=== PATIENT | male | born 1970 | race Native Hawaiian/Other Pacific Islander ===

== ENCOUNTER 2021-02-08 02:44 | Emergency (ER) | payer OTHER ==
[~2021-02-08] VITALS: Ht 182.9 cm; Wt 118.4 kg
[2021-02-08 03:18] LABS: PLATELET COUNT 272 K/uL (142-355)
[2021-02-08 04:20] VITALS: BP 157/99; TEMP 99.2
[2021-02-08] MEDS ORDERED: LIPITOR40 MG PO (04:59)
[2021-02-08] MEDS ORDERED: CLOP75TA2 PO (05:00)
[2021-02-08] MEDS ORDERED: DULO60CA2 PO (05:01)
[2021-02-08] MEDS ORDERED: FAMO20TA4 PO (05:03)
[2021-02-08] MEDS ORDERED: GRALISE600 MG PO (05:06)
[2021-02-08] MEDS ORDERED: HYDR5TAB9 PO (05:08)
[2021-02-08] MEDS ORDERED: INSUINJP SC ×2 (05:09→05:10)
[2021-02-08] MEDS ORDERED: ISOS60TA6 PO (05:09)
[2021-02-08] MEDS ORDERED: ZESTRIL40 MG PO (05:11)
[2021-02-08] MEDS ORDERED: MEDROXYPROG150 MG/ML IM (05:13)
[2021-02-08] MEDS ORDERED: GNP MELATONIN3 MG PO (05:16)
[2021-02-08] MEDS ORDERED: METFORMIN HYD1000 M1 PO (05:18)
[2021-02-08] MEDS ORDERED: METO25TA4 PO (05:21)
[2021-02-08] MEDS ORDERED: TRADJENTA5 M1 PO (05:21)
== END 2021-02-08 04:20 | disposition other institution (70) ==
LOC: ED 02:44
PROVIDERS: Emergency Medicine Emergency Medical Services
DX: R46.89 Other symptoms and signs involving appearance and behavior (principal); Z11.52 Encounter for screening for COVID-19; Z04.6 Encounter for general psychiatric examination, requested by authority
CPT/HCPCS: 80053; 85027; 87635; 93005; 99283; U0003